=== PATIENT | female | born 1945 | race Caucasian/White ===

== ENCOUNTER 2017-09-21 08:06 | Day surgery (SDC) | payer MEDICARE, OTHER ==
[2017-09-19 11:08] VITALS: BMI 27.1
[~2017-09-21 08:06] MED LIST: LACTATED RINGERS 1,000 ML IV SCH
[2017-09-21 09:10] VITALS: TEMP 97.7
[2017-09-21] MEDS ORDERED: PROPOFOL 10 MG/ML 20 ML VIAL IV ONE (09:58)
[2017-09-21] MEDS ORDERED: LIDOCAINE 1% INJ 10MG/ML (20 ML MDV) ONE (09:58)
[2017-09-21 10:18] VITALS: RESP 16
--- NOTE | 2017-09-21 10:21 | P.PCN ---
Date of Procedure: 09/21/17 Procedure(s) Performed: Procedure: Esophagogastroduodenoscopy and biopsy. Preoperative diagnosis: Chronic reflux symptoms, belching and excessive gas not responding to medical therapy. Postoperative diagnosis: 1. Small sliding hiatal hernia with no obvious esophagitis or complicated reflux disease. 2. Mild antral gastritis. 3. Multiple biopsies obtained from the duodenum, antrum and esophagus. Preparation sedation: Was provided by anesthesia. Brief clinical history: The patient is a 72-year-old female who is scheduled for this evaluation for the above reasons that has been going on for around 2 years. The symptoms have not been responding to omeprazole. This evaluation is to assess for peptic ulcer disease, malignancy or other pathology. Procedure: With the patient on her left lateral decubitus position and after informed consent and adequate sedation, I passed the Olympus-GIF 160 video upper endoscope through the cricopharyngeus down the esophagus. GE junction was around 33-34 cm from the incisors and there was a small sliding hiatal hernia. The esophagus did not show any obvious erosions, ulcers, strictures or Snyder's esophagus. The endoscope was then passed into the stomach which was insufflated with air and inspected in detail including the retroflex view in the cardia. There was some mottling and erythema in the antrum but no ulcers or erosions. Pyloric channel, duodenal bulb, post bulbar area and descending duodenum appeared within normal limits. Because of her symptoms, I obtained biopsies from the duodenum, antrum and esophagus then the endoscope was withdrawn. The patient tolerated the procedure well. Plan: The patient was reassured. Will await biopsy results. She will follow- up with you as planned and I will be happy to see in the office if her symptoms persist.
[2017-09-21 10:38] VITALS: BP 141/74; PULSE 82
== END 2017-09-21 11:03 | disposition home or self-care (01) ==
LOC: ORWHC2ENDO 08:06
DX: K44.9 Diaphragmatic hernia without obstruction or gangrene (principal); K29.50 Unspecified chronic gastritis without bleeding; K21.0 Gastro-esophageal reflux disease with esophagitis; I25.10 Atherosclerotic heart disease of native coronary artery without angina pectoris; Z85.3 Personal history of malignant neoplasm of breast; E07.9 Disorder of thyroid, unspecified; Z79.899 Other long term (current) drug therapy
CPT/HCPCS: 88305; 43239; J2001; J2704

== ENCOUNTER 2021-03-25 09:17 | Day surgery (SDC) | payer MEDICARE, OTHER ==
[2021-03-23 15:23] VITALS: BMI 29.1
[~2021-03-25 09:17] MED LIST changes: +LIDOCAINE 1% (10MG/ML) FOR IV START INTRADERMA PRN
[2021-03-25 09:43] VITALS: RESP 16; TEMP 96.8
[2021-03-25] MEDS ORDERED: PROPOFOL 10 MG/ML 20 ML VIAL IV ONE (10:38)
--- NOTE | 2021-03-25 10:41 | P.GSHP ---
History of Present Illness H&P Date: 03/25/21 Chief Complaint: Screening colonoscopy This a 75-year-old female who presents today for screening colonoscopy patient denies a significant GI complaints. Past Medical History Past Medical History: Cancer, GERD/Reflux, Myocardial Infarction ([place]), Thyroid Disorder Additional Past Medical History / Comment(s): [place] 2014, BREAST CANCER 2004 WITH CHEMO ., HX OF HYPOTHYROID, MIGRAINE HEADACHES, Last Myocardial Infarction Date:: 2014 History of Any Multi-Drug Resistant Organisms: None Reported Past Surgical History: Breast Surgery, Heart Catheterization With Stent, Tubal Ligation Additional Past Surgical History / Comment(s): LEFT BREAST LUMPECTOMY, HEART CATH WITH STENT (2014- ) Past Anesthesia/Blood Transfusion Reactions: No Reported Reaction Date of Last Stent Placement:: 2014 Smoking Status: Never smoker - Past Family History Mother Family Medical History: Cancer Additional Family Medical History / Comment(s): BREAST CANCER Father Family Medical History: Cancer Additional Family Medical History / Comment(s): COLON CANCER Medications and Allergies Home Medications Medication Instructions Recorded Confirmed Type Multivitamin [Multivitamins Adult 1 each PO DAILY 09/19/17 03/25/21 History Gummies] Omeprazole 40 mg PO BID PRN 09/19/17 03/25/21 History Levothyroxine Sodium [Synthroid] 88 mcg PO DAILY 03/23/21 03/25/21 History Allergies Allergy/AdvReac Type Severity Reaction Status Date / Time No Known Allergies Allergy Verified 03/23/21 10:37 Surgical - Exam Vital Signs Temp Pulse Resp BP Pulse Ox 96.8 F L 90 16 1321/72 97 03/25/21 09:40 03/25/21 09:40 03/25/21 09:40 03/25/21 09:40 03/25/21 09:40 - General well developed, well nourished, no distress - Eyes PERRL - ENT normal pinna - Neck no masses - Respiratory normal expansion - Cardiovascular Rhythm: regular - Abdomen Abdomen: soft Hernia: none Assessment and Plan Assessment: We'll perform screening colonoscopy
--- NOTE | 2021-03-25 10:54 | P.OP ---
Date of Procedure: 03/25/21 Preoperative Diagnosis: Screening colonoscopy Postoperative Diagnosis: Severe diverticulosis of the left and sigmoid colon Procedure(s) Performed: Colonoscopy Anesthesia: MAC Surgeon: Kike Vicente Pathology: none sent Condition: stable Disposition: PACU Description of Procedure: The patient's placed on the endoscopy table in the lateral position. She received IV sedation. Digital rectal exam was performed which revealed no abnormalities. The flexible colonoscope was then placed patient anus and passed throughout colon. The cecum could not be entered due to tortuosity valve. The distal right colon appeared normal. The transverse colon appeared normal. In the descending and; was extensive diverticular changes. Scope was then brought back the rectum and this appeared normal. Scope withdrawn for patient.
[2021-03-25 11:14] VITALS: BP 133/69; PULSE 79
== END 2021-03-25 12:03 | disposition home or self-care (01) ==
LOC: ORWHC2ENDO 09:17
PROVIDERS: ATTEND Surgery
DX: Z12.11 Encounter for screening for malignant neoplasm of colon (principal); K57.30 Diverticulosis of large intestine without perforation or abscess without bleeding; Q43.8 Other specified congenital malformations of intestine; K21.9 Gastro-esophageal reflux disease without esophagitis; I25.2 Old myocardial infarction; E03.9 Hypothyroidism, unspecified; Z85.3 Personal history of malignant neoplasm of breast; F41.9 Anxiety disorder, unspecified; F32.9 Major depressive disorder, single episode, unspecified; G43.909 Migraine, unspecified, not intractable, without status migrainosus; Z92.21 Personal history of antineoplastic chemotherapy; Z97.2 Presence of dental prosthetic device (complete) (partial); Z95.5 Presence of coronary angioplasty implant and graft; Z98.51 Tubal ligation status; Z80.3 Family history of malignant neoplasm of breast; Z80.0 Family history of malignant neoplasm of digestive organs; Z79.890 Hormone replacement therapy
CPT/HCPCS: J2704; G0121

== ENCOUNTER → 2021-10-27 | Outpatient (CLI) | payer MEDICARE, OTHER ==
[2021-10-27 12:15] LABS: African American GFR (CKD) >90 (>60 ml/min/1.73 sqM); Blood Urea Nitrogen 10 mg/dL (7-17); Non-African American GFR(CKD) 86 (>60 ml/min/1.73 sqM)
--- NOTE | 2021-10-27 20:11 | CT ---
EXAMINATION TYPE: CT abdomen pelvis w con DATE OF EXAM: 10/27/2021 COMPARISON: None available HISTORY: Constipation, RLQ pain CT DLP: 480.30 mGycm Automated exposure control for dose reduction was used. TECHNIQUE: Helical acquisition of images was performed from the lung bases through the pelvis. CONTRAST: Performed with Oral Contrast and with IV Contrast, patient injected with 100 ml mL of Isovue 300. FINDINGS: LUNG BASES: Bilateral basal pulmonary calcified granulomas. LIVER/GB: Scattered tiny hepatic calcification. Questionable hepatic steatosis. No definite hepatic f ocal lesion. Unremarkable gallbladder. PANCREAS: No significant abnormality is seen. SPLEEN: Multiple tiny splenic calcifications likely related to previous granulomatous infection. ADRENALS: No significant abnormality is seen. KIDNEYS: Tiny renal hypodensities likely representing tiny renal cysts. Unremarkable kidneys otherwis e. FREE AIR: No free air is visualized. RETROPERITONEAL ADENOPATHY: None visualized REPRODUCTIVE ORGANS: No gross uterine or adnexal mass. URINARY BLADDER: No significant abnormality is seen. PELVIC ADENOPATHY: None visualized. OSSEOUS STRUCTURES: Grade 1 anterolisthesis of L4 over L5 and L5 over S1 with bilateral L4-5 and L5- S1 facet osteoarthropathy. No aggressive bone lesion. BOWEL: Small sliding hiatal hernia. Unremarkable remainder of the stomach, duodenum and small bowel. Colonic diverticulosis most evident involving the sigmoid colon. Normal appendix. OTHER: Scattered arterial atherosclerotic calcification. 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 No sizable ascites. IMPRESSION: No definite acute abnormality is seen in the abdomen or the pelvis. Incidental findings as described above.
== END | disposition home or self-care (01) ==
LOC: RADCTMAIN 11:14
PROVIDERS: ATTEND Family Medicine
DX: K59.00 Constipation, unspecified (principal)
CPT/HCPCS: 82565; 84520; 74177; 36415; Q9967